=== PATIENT | male | born 2000 | race African-American/Black ===

== ENCOUNTER 2022-09-17 07:19 | Emergency (ER) | payer SELFPAY ==
[~2022-09-17] VITALS: Ht 177.8 cm; Wt 102.1 kg
[2022-09-17] MEDS ORDERED: TAMIFLU 75MG CA75 MG PO (09:31)
[2022-09-17] MEDS ORDERED: IBU800 M1 PO (09:31)
== END 2022-09-17 09:33 | disposition home or self-care (01) ==
LOC: ED 07:19
DX: J11.1 Influenza due to unidentified influenza virus with other respiratory manifestations (principal); Z20.822 Contact with and (suspected) exposure to COVID-19; Z91.013 Allergy to seafood